=== PATIENT | male | born 2000 | race Caucasian/White ===

== ENCOUNTER 2019-05-14 20:24 | Emergency (ER) | payer OTHER ==
--- NOTE | 2019-05-14 21:34 | ED ---
Head Injury - HPI Summary HPI Summary: 18 year old male presents with scalp laceration today. He states that he was playing Lacrosse and hit another player in the head with his helmet and it ended up causing a laceration. he denies any headache or loss consciousness. No nausea or vomiting. No change in vision. No dizziness. Has no pain. Area continues to bleed. Has no medical conditions. Tetanus up-to-date. - History Of Current Complaint Chief Complaint: EDHeadInjury Stated Complaint: HEAD INJURY PER PT Time Seen by Provider: 05/14/19 21:09 Pain Intensity: 3 - Allergies/Home Medications Allergies/Adverse Reactions: Allergies Allergy/AdvReac Type Severity Reaction Status Date / Time peanuts Allergy Unknown Uncoded 05/14/19 20:30 Reaction Details PMH/Surg Hx/FS Hx/Imm Hx Endocrine/Hematology History: Denies: Hx Anticoagulant Therapy Respiratory History: Denies: Hx Asthma Infectious Disease History: No Infectious Disease History: Denies: Traveled Outside the [place] in Last 30 Days - Family History Known Family History: Positive: Non-Contributory - Social History Alcohol Use: None Substance Use Type: Reports: None Smoking Status (MU): Never Smoked Tobacco Review of Systems Negative: Fever Negative: Chest Pain Negative: Shortness Of Breath Positive: Other - scalp laceration Negative: Headache All Other Systems Reviewed And Are Negative: Yes Physical Exam Triage Information Reviewed: Yes Vital Signs On Initial Exam: Initial Vitals Temp Pulse Resp BP Pulse Ox 97.9 F 68 16 151/75 97 05/14/19 20:30 05/14/19 20:30 05/14/19 20:30 05/14/19 20:30 05/14/19 20:30 Vital Signs Reviewed: Yes Appearance: Positive: Well-Appearing Skin: Positive: Warm, Dry, Other - 3cm by 1/2cm scalp laceration Head/Face: Positive: Normal Head/Face Inspection Eyes: Positive: Normal, EOMI, NATE, Conjunctiva Clear ENT: Positive: Normal ENT inspection, Pharynx normal, TMs normal Neck: Positive: Other: - nontender neck, full ROM neck Respiratory/Lung Sounds: Positive: Clear to Auscultation, Breath Sounds Present Cardiovascular: Positive: Normal, RRR Musculoskeletal: Positive: Normal Neurological: Positive: Sensory/Motor Intact, Alert, Oriented to Person Place, Time, CN Intact II-III Psychiatric: Positive: Normal Procedures - Sedation Patient Received Moderate/Deep Sedation with Procedure: No - Laceration/Wound Repair 1 Location: head Description: Linear Anesthesia: Local, 1.0% Length, Depth and Shape: 3cm by 1/2cm Irrigated w/ Saline (ccs): 300 Closure: Chelsey #__ - 4 Diagnostics - Vital Signs Vital Signs Temp Pulse Resp BP Pulse Ox 05/14/19 20:30 97.9 F 68 16 151/75 97 - Laboratory Lab Statement: Any lab studies that have been ordered have been reviewed, and results considered in the medical decision making process. Head Injury Course/Dx Course Of Treatment: 18 year old male presents with scalp laceration today. He states that he was playing Lacrosse and hit another player in the head with his helmet and it ended up causing a laceration. he denies any headache or loss consciousness. No nausea or vomiting. No change in vision. No dizziness. Has no pain. Area continues to bleed. Has no medical conditions. Tetanus up- to-date. On exam 3cm by 1/2 cm laceration to scalp. Cleaning placed 4 chelsey. Told to follow up with [facility] to get clear for sports. Patient understands and agrees with plan. - Diagnoses Differential Diagnosis/HQI/PQRI: Concussion Without LOC, Contusion, Intracranial Bleed, Laceration Provider Diagnoses: Scalp laceration, Head injury Discharge ED - Sign-Out/Discharge Documenting (check all that apply): Patient Departure - Discharge Plan Condition: Good Disposition: HOME Patient Education Materials: Staple Care (ED) Referrals: No Primary Care Phys,NOPCP [Primary Care Provider] - Additional Instructions: Take Tylenol or ibuprofen for pain Do not scrub staple area Return to ED, urgent care or primary in 7-10 days to have chelsey removed Follow up with [facility] Return to ED if develop any new or worsening symptoms - Billing Disposition and Condition Condition: GOOD Disposition: Home
[2019-05-14 21:39] VITALS: BP 142/70
== END 2019-05-14 21:38 | disposition home or self-care (01) ==
LOC: ED 20:24
DX: S01.01XA Laceration without foreign body of scalp, initial encounter (principal); S09.90XA Unspecified injury of head, initial encounter; W51.XXXA Accidental striking against or bumped into by another person, initial encounter; Y93.65 Activity, lacrosse and field hockey; Y92.39 Other specified sports and athletic area as the place of occurrence of the external cause; Z91.010 Allergy to peanuts
CPT/HCPCS: 12002; 99281